=== PATIENT | male | born 1990 | race Caucasian/White ===

== ENCOUNTER 2024-10-14 14:14 | Outpatient (AMB) | payer MEDICAID, SELFPAY ==
[2024-10-14 14:32] VITALS: BP 127/84; PULSE 87; RESP 18; TEMP 36.4; O2SAT 95; BMI 32.0
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
== END 2024-10-14 15:11 | disposition home or self-care (01) ==
LOC: HODAHC 14:14
PROVIDERS: PCP Internal Medicine; Referring Provider Student in an Organized Health Care Education/Training Program; Supervising Provider Internal Medicine; Visit Provider Student in an Organized Health Care Education/Training Program
DX: E11.9 Type 2 diabetes mellitus without complications (principal); E78.1 Pure hyperglyceridemia; E78.5 Hyperlipidemia, unspecified; Z79.84 Long term (current) use of oral hypoglycemic drugs
CPT/HCPCS: 99213; G0463

== ENCOUNTER 2025-01-13 16:42 | Outpatient (AMB) | payer MEDICAID, SELFPAY ==
--- NOTE | 2025-01-13 14:58 | PD.RESCLINIC ---
Allergies/Meds Allergies & Medications Allergies aspirin Allergy (Severe, Verified 01/13/25 15:18) Swelling of Lip/Tongue/Throat Medication Reconciliation blood-glucose meter #1 ea 11/25/23 [Rx Confirmed 06/10/24] blood-glucose sensor (FreeStyle Melodie 3 Sensor device) #2 ea 11/30/23 [Rx Confirmed 06/10/24] blood sugar diagnostic (Blood Glucose Test strips) #50 ea 01/25/24 [Rx Confirmed 06/10/24] lancets 30 gauge #200 ea 01/25/24 [Rx Confirmed 06/10/24] atorvastatin 20 mg tablet 20 mg PO QHS #90 tabs 01/13/25 [Rx Confirmed 01/13/25] fenofibrate nanocrystallized 145 mg tablet 145 mg PO QDAY #90 tabs 01/13/25 [Rx Confirmed 01/13/25] metformin 500 mg tablet 1,000 mg (2 x 500 mg) PO BIDWMEAL #360 tabs 01/13/25 [Rx Confirmed 01/13/25] MA Intake Visit Data Collection New Patient or Established: Established Patient (seen at [facility] within 3 years) Seen by Clinical Staff ONLY (RN/MA): No Pain Present Currently: No Pain scale:: 0 Pain Scale Used: Monae-Zamorano/Numerical Credit Authorizer Required: No PCP or OBGYN visit in last 3 months: Yes Hx Now: No Do You Feel Safe at Home: Yes Authorities Contacted: N/A Smoking Status Smoking Status: Never smoker For Televisit only Telemed Video/Phone Visit: Yes Verbal consent obtained for Telemed visit?: Yes Verbal Consent witness name: lizbet suazo ma Telemed Video/Phone visit w/Clinical Staff: 21-30 min Immunization / Flu Flu Vaccine in the Last 12 Months: Yes Flu Vaccine Exclusion Criteria: No Exclusion Criteria and Already Received Past Medical History Past Medical History NEUROLOGIC: Negative Neurological Disorders CARDIAC: Negative Cardiac Disorders or Congestive Heart Failure RESPIRATORY: Negative Chronic Obstructive Pulmonary Disease (COPD) or Asthma GASTROINTESTINAL: Negative Gastrointestinal Disorders GENITOURINARY: Negative Genitourinary Disorders or Renal Disease ENDOCRINE: Negative Endocrine Disorders, Diabetes Mellitus Type 1 or Diabetes Mellitus Type 2 HEMATOLOGIC: Negative Blood Disorders or Sickle Cell Disease OTHER HISTORY: Negative Autoimmune Disease, Anesthesia Reactions, MRSA, Clostridium Difficile or Cancer Family History FAMILY HISTORY: Negative Family Psychiatric Problems, Family Respiratory Disorders, Family Cardiac Disorders, Family Gastrointestinal Problems, Family Cancer, Family Surgery or Family Anesthesia Reaction Surgical History SURGICAL: Negative Cardiac Surgery, Endocrine Surgery, Ear Surgery, Abdominal Surgery, Nephrectomy, Joint Replacement or Neurologic Surgery Social History SMOKING STATUS: Smoking status: Never smoker ALCOHOL: Alcohol Intake: Never HOUSING: Housing: House LIVES WITH: Lives With: Spouse Patient Ashley Domingoamanda Social History Living Situation History Housing: House Housing Other:: pt lives with Tobacco History Smoking Status: Never smoker Alcohol History Alcohol Intake: Never Domestic Abuse History Do You Feel Safe at Home: Yes Review of Systems Report any current symptoms Only answer those that you have currently: Past Medical History Past Medical History Have you ever been diagnosed with any of the following: Cardiology Problems Congestive Heart Failure: No Respiratory Problems Chronic Obstructive Pulmonary Disease (COPD): No Asthma: No Genital/Urinary Problems Renal Disease: No Endocrine Problems Diabetes Mellitus Type 1: No Diabetes Mellitus Type 2: No Blood Problems Sickle Cell Disease: No Other Problems Autoimmune Disease: No Anesthesia Reactions: No MRSA: No Clostridium Difficile: No Cancer: No History of Present Illness HPI Narrative Mr. Miguel Carvalho is a 33-year-old male with history of new onset diabetes and pancreatitis here for three month follow-up visit to review recent labwork. Patient's TG, Cholesterol, and A1c all have increased in the last three months. Most concerning, is his increased TG from 197 to 500, and A1c from 7.4 to 7.7%. Patient does admit that since he went to [facility] with his family trhee weeks ago, he has not taken his Fenofibrate or Statin or maintain a balanced, healthy diet with less fats and carbs. Patient was encouraged to incorporate daily exercise, start introducing a balanced diet into his daily routine, and take his Fenofibrate and Statin daily. Will also increase patient's Meformin to 1000mg BIDWM. Otherwise, patient denies any n/v, diarrhea, or abdominal pain. Patient was sent refills along with new prescription for Meformin. Patient will f/u in three months for routine bloodwork. Patient will stop by office one week prior for lab slip to be picked up to complete labs at [facility]. Review of Systems Review of Systems Systems Reviewed: All systems reviewed, normal except as documented Objective/Exam Narrative Physical exam: Visit conducted via telephone Assessment & Plan Diagnosis / Problem List (1) Hypertriglyceridemia: Status: Acute Assessment & Plan: Patient hospitalized for acute pancreatitis most likely secondary to hypertriglyceridemia in early 2023. Patient's triglycerides were as high as 800. Last triglycerides increased from 197 to 500, seen on routine bloodwork collected on 01/08/25 Patient did admit to not taking both Atorvastatin and Fenofibrate for three weeks LDL/HDL ratio on labwork from 01/08/25 was 5.04:1, indicating high risk Plan: Encouraged strict compliance with fenofibrate 145 mg daily and Atorvastatin 20mg HS Continue to maintain a low fat and carb diet to avoid recurrent pancreatitis Will have patient repeat bloodwork in three months: Lipid panel and LFTs (2) Diabetes mellitus: Status: Acute Assessment & Plan: Patient's current A1c 7.7% which is higher than three months ago. Plan: Increased patient's Metformin dose from 500 to 1000mg BIDWM Encouraged patient to incorporate healthy, balanced diet and exercise to daily routine Will discuss if patient has had his annual appointments for foot and eye care (3) Hyperlipidemia: Status: Acute Assessment & Plan: Patient's LDL/HDL ratio is elevated on recent labs despite LDL showing a decrease from last labs. HDL also decreased. Plan: Continue to take fenofibrate 145 mg daily and Atorvastatin 20mg HS Continue to maintain a low fat and carb diet to avoid recurrent pancreatitis Next appointment for April for routine labwork and possible adjustment of medications Additional Assessment Patient's care and plan discussed with my attending, Dr. Doss. Radha Rodgers, PGY-2 Internal Medicine Attending Note: Case discussed with and agree with note and management plan of Resident Physician as per Resident's Note above. Issues of concern for present visit are as follows: 3-month follow-up visit. Labs reviewed. Triglycerides have increased to 500. Hemoglobin A1c up from 7.4 to 7.7. Patient has not been watching his diet, and for approximately 3 weeks to 1 month has not taken fenofibrate or statin. Need for medication compliance reinforced. Reviewed diet, exercise, footcare, eye care. Resume statin and fenofibrate. Metformin dose increased. Follow-up in 3 months for repeat of labs. Krishna Doss MD Physician Billing Established Patient Established Patient: E/M Level 3-CPT 82098 Office Procedures [facility] Level of Care Nursing/Assessment Patient Status: Established Patient Nursing Assessment/Reassessment: Medication Reconciliation and Update PMH in EMR Coordination of Care: Complex Care and Chronic Disease 1-5, Consent,records obtained, informed consent, Education Simp Pt/Fam, Lab and Imaging orders, Results/Orders obtained and Staff clarify orders Established Patient Charge Established Patient Point Assignment: 90 Telehealth Telemed Phone/Video with patient at home & Dr,PA,TOP DYEING MACHINE LOADER: Yes
== END 2025-01-13 16:42 | disposition home or self-care (01) ==
LOC: HODAHC 16:42
PROVIDERS: PCP Student in an Organized Health Care Education/Training Program; Referring Provider Student in an Organized Health Care Education/Training Program; Supervising Provider Internal Medicine; Visit Provider Student in an Organized Health Care Education/Training Program
DX: E78.1 Pure hyperglyceridemia (principal); E11.9 Type 2 diabetes mellitus without complications; E78.5 Hyperlipidemia, unspecified; Z79.84 Long term (current) use of oral hypoglycemic drugs
CPT/HCPCS: 99212; G0463

== ENCOUNTER 2025-09-10 13:58 | Emergency (ER) | payer MEDICAID, SELFPAY ==
[2025-09-10 14:55] VITALS: BP 145/93; PULSE 84; RESP 20; TEMP 36.8; O2SAT 96; BMI 32.1
--- NOTE | 2025-09-10 15:53 | XR_ITS ---
Examination: CT abdomen and pelvis without contrast. Coronal 3-D reconstructions. Sagittal 2-D reconstructions. Date and time of exam: September 10, 2025, 1421 hours INDICATIONS: Generalized abdominal pain today, history pancreatitis, comparison verbally 22,024 CTDI: vol (mGy): 10.8 DLP: (mGycm): 725 Technique: Axial images of the abdomen have been obtained, 3 mm slice thickness Intravenous contrast material has not been administered. Low dose protocols were performed. One or more of the following dose reduction techniques were used; automated exposure control, adjustment of the mA and/or KV according to patient size, use of iterative reconstruction technique. Findings: Diffuse fatty infiltration throughout the liver moderate hepatomegaly Gallbladder contracted, gallbladder wall does appear thickened Severe acute pancreatitis, no pseudocyst Spleen not enlarged Moderate renal scar formation Aorta normal size Normal appendix No bowel obstruction or diverticulitis Normal seminal vesicles No prostatomegaly Contracted urinary bladder Adequate bone density IMPRESSION: Severe acute pancreatitis, no pseudocyst Gallbladder wall appears thickened, consider MRCP follow-up
[2025-09-10 16:07] LABS: Lactate (Lactic Acid) 2.6 mMol/L (0.4-2.0)
[2025-09-10 16:08] LABS: Basophils # (Auto) 0.1 Thou/mm3 (0.0-0.2); Basophils % (Auto) 0 % (0-2.5); Eosinophils # (Auto) 0.0 Thou/mm3 (0.0-0.5); Eosinophils % (Auto) 0 % (0-10); Hematocrit 45.4 % (41.0-53.0); Hemoglobin 15.8 g/dL (13.5-16.0); Immature Granulocytes Auto 0.08 Thou/mm3 (0.00-0.00); Lymphocytes # (Auto) 0.9 Thou/mm3 (1.0-4.8); Lymphocytes % (Auto) 6 % (10-50); Mean Corpuscular HGB Conc 34.8 g/dl (31.0-37.0); Mean Corpuscular Hemoglobin 30.8 pg (25.0-35.0); Mean Corpuscular Volume 89 fL (80-100); Monocytes # (Auto) 0.9 Thou/mm3 (0.0-0.8); Monocytes % (Auto) 6 % (0-12); Neutrophils # (Auto) 13.9 Thou/mm3 (1.8-7.7); Neutrophils % (Auto) 88 % (37-80); Nucleated Red Blood Cell # 0.00 Thou/mm3 (0.00-0.00); Nucleated Red Blood Cell % 0 /100 WBC (0); Platelet Count 230 Thou/mm3 (140-440); RDW Standard Deviation 39.8 fL (35.1-43.9); Red Blood Count 5.13 Miln/mm3 (4.50-5.90); White Blood Count 15.9 Thou/mm3 (3.8-10.6)
[2025-09-10 16:22] LABS: Collection Type, Urine Clean Catch; Squamous Epithelial Cell,Urine 0 /hpf (0-5)
[2025-09-10 16:28] LABS: Anion Gap 13 (7-16); BUN/Creatinine Ratio 8 Ratio (12-20); Blood Urea Nitrogen 9 mg/dL (9-23); Calcium 9.8 mg/dL (8.3-10.6); Carbon Dioxide 24.6 mMol/L (20.0-31.0); Chloride 99 mMol/L (98-107); Creatinine (Component) 1.1 mg/dL (0.6-1.3); Estimated Creatinine Clearance 123.1 mL/min (>60); Glucose 277 mg/dL (74-106); Osmolality,Calculated 282 (275-295); Potassium 4.6 mMol/L (3.4-5.1); Sodium 137 mMol/L (136-145); Troponin I < 0.002 ng/mL (0.0-0.045); eGFR > 60 See Note
[2025-09-10 16:35] LABS: Amorphous Crystals,Urine Present (Absent); Bilirubin,Urine Negative (Negative); Blood,Urine Negative (Negative); Color,Urine Yellow (Lt Yel-Yel); Glucose, Urine 4+ (Negative); Hyaline Casts,Urine < 1 /hpf (0-1); Ketones,Urine 2+ (Negative); Leukocyte Esterase,Urine Negative (Negative); Nitrite,Urine Negative (Negative); PH,Urine 5.5 (5.0-7.0); Protein,Urine 1+ (Neg - Trace); RBC,Urine 4 /hpf (0-3); Specific Gravity,Urine 1.032 (1.001-1.035); Urobilinogen,Urine Negative mg/dL (0.0-1.0); WBC,Urine 2 /hpf (0-5)
[2025-09-10 16:37] LABS: Lipase 1035 U/L (12-53)
[2025-09-10 16:48] LABS: Clarity,Urine Cloudy (Clear/Hazy)
--- NOTE | 2025-09-10 17:07 | XR_ITS ---
Examination: Abdomen sonogram, Limited Date and time of exam: September 10, 2025, 1724 hours INDICATIONS: Right upper abdominal pain and tenderness today Technique: Real-time mistry scale transabdominal sonographic images of the upper abdomen obtained. Findings: Normal gallbladder Common bile duct 0.6 cm no definite stones Pancreas obscured by bowel gas Liver 20.9 cm fatty infiltration Normal hepatopetal portal venous flow Patent IVC IMPRESSION: Normal gallbladder Enlarged common bile duct 0.6 cm although no definite stones If biliary colic is a clinical consideration, suggest MRCP follow-up
[2025-09-10 19:05] LABS: Reflex Lactate? Y
--- NOTE | 2025-09-10 19:45 | PD.EDABDPN ---
ED Abdominal Pain RME/HPI General Chief Complaint: Abdominal Pain Stated complaint: Right side abdominal pain since this morning Time seen by provider: 09/10/25 14:46 Arrival date/time: 09/10/25 13:58 Source: patient Mode of arrival: ambulatory Limitations: no limitations RME / HPI RME / HPI narrative: This patient is a pleasant but morbidly obese 35-year-old male who arrives to the ED today for evaluation of abdominal pain rating to his back for the past day. Patient states symptoms began yesterday and have continued. Patient states a history of pancreatitis that has not been evaluated for chronic conditions. Patient denies any fever but states intermittent nausea. Related Data Previous Rx's ?Medication ?Instructions ?Recorded blood-glucose meter #1 ea 11/25/23 blood-glucose sensor (FreeStyle #2 ea 11/30/23 Melodie 3 Sensor device) blood sugar diagnostic (Blood #50 ea 01/25/24 Glucose Test strips) lancets 30 gauge #200 ea 01/25/24 atorvastatin 20 mg tablet 20 mg PO QHS #90 tabs 01/13/25 fenofibrate nanocrystallized 145 145 mg PO QDAY #90 tabs 01/13/25 mg tablet metformin 500 mg tablet 1,000 mg (2 x 500 mg) PO BIDWMEAL 01/13/25 #360 tabs hydrocodone 5 mg-acetaminophen 325 1 tab PO Q8H PRN pain #14 tabs 09/11/25 mg tablet Allergies Allergy/AdvReac Type Severity Reaction Status Date / Time aspirin Allergy Severe Swelling Verified 09/10/25 14:02 of Lip/Tongue/Throat ibuprofen Allergy Verified 09/10/25 14:02 Review of Systems Review of Systems Systems Reviewed: All systems reviewed, normal except as documented Past Medical History Past Medical History NEUROLOGIC: Negative Neurological Disorders CARDIAC: Negative Cardiac Disorders or Congestive Heart Failure RESPIRATORY: Negative Chronic Obstructive Pulmonary Disease (COPD) or Asthma GASTROINTESTINAL: Positive Pancreatitis; Negative Gastrointestinal Disorders GENITOURINARY: Negative Genitourinary Disorders or Renal Disease MUSCULOSKELETAL: Negative Musculoskeletal Disorders ENDOCRINE: Negative Endocrine Disorders, Diabetes Mellitus Type 1 or Diabetes Mellitus Type 2 HEMATOLOGIC: Negative Blood Disorders or Sickle Cell Disease OTHER HISTORY: Negative Autoimmune Disease, Anesthesia Reactions, MRSA, Clostridium Difficile or Cancer Family History FAMILY HISTORY: Negative Family Psychiatric Problems, Family Respiratory Disorders, Family Cardiac Disorders, Family Gastrointestinal Problems, Family Cancer, Family Surgery or Family Anesthesia Reaction Surgical History SURGICAL: Negative Cardiac Surgery, Endocrine Surgery, Ear Surgery, Abdominal Surgery, Nephrectomy, Joint Replacement or Neurologic Surgery Social History SMOKING STATUS: Never smoker ED Exam Narrative Physical exam: Diffuse epigastric tenderness to palpation extending towards the right upper quadrant and into the back per patient. No signs of trauma. No pulsatile masses. General Limitations: Present no limitations General appearance: Present alert and in no apparent distress Head Head exam: Present atraumatic Eye Eye exam: Present normal appearance, PERRL and EOMI ENT ENT exam: Present normal exam, normal oropharynx and mucous membranes moist Neck Neck exam: Present normal inspection, full ROM and trachea midline Chest Chest inspection: Present normal inspection and symmetric chest wall rise Respiratory Respiratory exam: Present normal lung sounds bilaterally Cardiovascular Cardiovascular exam: Present regular rate, normal rhythm and normal heart sounds Abdominal Exam Abdominal exam: Present tenderness and hyperactive bowel sounds Abdominal tenderness: Present RUQ, LUQ, epigastrium and moderate Rectal Exam Rectal exam: Present deferred exam: Present other (Deferred) Extremities Exam Extremities exam: Present normal inspection and full ROM Back Exam Back exam: Present normal inspection and full ROM Neurological Exam Neurological exam: Present alert, oriented X3 and CN II-XII intact Psychiatric Psychiatric exam: Present normal affect and normal mood Skin Skin exam: Present warm, dry, intact and normal color Course Course Course Narrative: All studies performed at ED were evaluated by me personally. Serum laboratories remarkable for a hyperglycemic state with a blood sugar of 277. Additional findings of leukocytosis with a white blood cell count of 15.9 as well as a significantly elevated lipase of 1035 indicative of a acute pancreatitis event. Additional findings of elevated lactic acid were noted. Imaging studies were performed and acute pancreatitis was noted. Additional findings of possible cholecystitis were noted. Patient will remain in ED under observation while waiting on MRCP prior to admission. Quality Measures none Orders Category Date Time Status Aspiration precautions NOW Care 09/10/25 16:59 Completed IV [Insert IV] NOW Care 09/10/25 16:58 Completed MRI Screening NOW Care 09/10/25 17:01 Completed NPO NOW Care 09/10/25 16:59 Completed Diet NPO (NOW) Diet 09/10/25 16:[address] abdomen pelvis wo con Stat Exams 09/10/25 15:53 Completed MR MRCP Stat Exams 09/11/25 Completed US abdomen limited Stat Exams 09/10/25 17:07 Completed BMP [Basic Metabolic Panel] Stat Lab 09/10/25 16:02 Completed CBC Stat Lab 09/10/25 16:02 Completed CBC Stat Lab 09/11/25 10:29 Completed CMP [Comprehensive Metabolic Panel] Stat Lab 09/11/25 10:29 Completed Lactate (Lactic Acid) Stat Lab 09/10/25 16:02 Completed Lactic Acid, 3 HR Stat Lab 09/10/25 20:51 Completed Lipase Stat Lab 09/10/25 16:02 Completed Lipase Stat Lab 09/11/25 10:29 Completed Liver Panel Stat Lab 09/11/25 04:35 Completed Troponin I Stat Lab 09/10/25 16:02 Completed UA [Urinalysis] Stat Lab 09/10/25 16:11 Completed HYDROmorphone INJ [Dilaudid Inj] Med 09/10/25 15:54 Discontinued 0.5 mg IM X1 ONE HYDROmorphone INJ [Dilaudid Inj] Med 09/11/25 00:12 Discontinued 1 mg IVP X1 ONE Insulin Regular Med 09/11/25 01:43 Discontinued 8 unit SC X1 ONE Morphine* Inj Med 09/11/25 13:16 Discontinued 4 mg IVP X1 ONE Ondansetron Inj [Zofran Inj] Med 09/11/25 13:16 Discontinued 4 mg IVP X1 ONE Ondansetron Odt [Zofran Odt] Med 09/10/25 16:09 Discontinued 4 mg PO X1 ONE Sodium Chloride 0.9% 1000 ml [Ns] 1,000 ml Med 09/10/25 16:58 Discontinued IV 150 mls/hr Sodium Chloride 0.9% 1000 ml [Ns] 1,000 ml Med 09/11/25 01:43 Discontinued IV 999 mls/hr Sodium Chloride 0.9% 1000 ml [Ns] 1,000 ml Med 09/11/25 10:24 Discontinued IV 999 mls/hr As above Vital Signs Vital signs: Vital Signs Temperature 98.2 F 09/10/25 14:55 Pulse Rate 84 09/10/25 14:55 Respiratory Rate 20 09/10/25 14:55 Blood Pressure 145/93 H 09/10/25 14:55 Pulse Oximetry (%) 96 09/10/25 14:55 Oxygen Delivery Method Room Air 09/10/25 14:55 Noted above Abdominal Pain MDM MDM Narrative MDM Narrative:: Imaging studies and laboratories confirmed an acute pancreatitis. Possible cholecystitis was noted. Patient will remain in the ED under observation until MRCP study has been performed. Admission will be started at that time. Patient data External records reviewed:: [facility] previous records Clinical information provided by:: patient Social determinants that could affect healthcare access:: none Patient has the following chronic illnesses:: Pancreatitis How is presenting disease/condition affected by chronic disease/condition?: caused by Evaluation data The following diagnostics were reviewed and interpreted by me:: lab results, radiology exam(s) and EKG tracing(s) Lab and/or radiology exams considered but not ordered:: None Interpretation Summary: Serum laboratories revealed a hyperglycemic state with a value of 277. Additional findings of a leukocytosis with a white blood cell count of 15.9 was noted as well as an elevated lipase of 1035. Elevated lactic acid was noted as well. Patient imaging studies confirmed acute pancreatitis with possible cholecystitis. Patient will remain in the ED under observation until MRCP evaluation can occur. Medications / Prescriptions Medications or Prescriptions considered but not ordered:: None Medication administrations:: Medication Administration History Discontinued Medications Hydromorphone HCl (Hydromorphone Inj 2 Mg/Ml Vial) 0.5 mg IM X1 ONE Stop: 09/10/25 15:55 Last Admin: 09/10/25 20:04 Dose: 0.5 mg Documented By: CVL Hydromorphone HCl (Hydromorphone Inj 2 Mg/Ml Vial) 1 mg IVP X1 ONE Stop: 09/11/25 00:13 Last Admin: 09/11/25 02:21 Dose: 1 mg Documented By: EB Sodium Chloride (Ns) 1,000 mls @ 150 mls/hr IV .Q6H40M ONE Stop: 09/10/25 23:37 Last Infusion: 09/11/25 07:05 Dose: Infused Documented By: Admin: 09/10/25 20:00 Dose: 150 mls/hr Documented By: CVL Sodium Chloride (Ns) 1,000 mls @ 999 mls/hr IV .Q1H1M ONE Stop: 09/11/25 02:43 Last Infusion: 09/11/25 03:12 Dose: Infused Documented By: Admin: 09/11/25 03:10 Dose: 999 mls/hr Documented By: EB Sodium Chloride (Ns) 1,000 mls @ 999 mls/hr IV .Q1H1M ONE Stop: 09/11/25 11:24 Last Infusion: 09/11/25 12:03 Dose: Infused Documented By: Admin: 09/11/25 11:02 Dose: 999 mls/hr Documented By: EF Insulin Human Regular (Insulin Hum Regular 1 Unit/0.01 Ml (Per Unit)) 8 unit SC X1 ONE Stop: 09/11/25 01:44 Last Admin: 09/11/25 02:35 Dose: 8 unit Documented By: EB Co-signed By: AC Morphine Sulfate (Morphine Sulf Inj 4 Mg/Ml Vial) 4 mg IVP X1 ONE Stop: 09/11/25 13:17 Last Admin: 09/11/25 13:32 Dose: 4 mg Documented By: EF Ondansetron HCl (Ondansetron Odt 4 Mg Tabrap) 4 mg PO X1 ONE; Protocol Stop: 09/10/25 16:10 Last Admin: 09/10/25 20:00 Dose: 4 mg Documented By: CVL Ondansetron HCl (Ondansetron Inj 2 Mg/Ml Inj 2 Ml) 4 mg IVP X1 ONE; Protocol Stop: 09/11/25 13:17 Last Admin: 09/11/25 13:32 Dose: 4 mg Documented By: EF See above Consultations Consultation(s) initiated? (list below): No Diagnosis Differential diagnosis abdominal pain: abdominal pain, acute appendicitis, gastroenteritis, pancreatitis and small bowel obstruction Most likely diagnosis given after review of the tests above:: Pancreatitis Admission Indicated Admission indicated?: not indicated Explain why admission is indicated or not indicated:: Pending MRCP results Admission Request Was there a request for admission?: No Disposition Plan Disposition Plan: other (specify) (Patient will be transferred of care to Dr. Philip) Discharge Plan Plan Patient Disposition: HOME (Self Care) Patient condition on transfer: Stable Prescriptions/Referrals Prescriptions/Med Rec: New hydrocodone-acetaminophen 5-325 mg tablet 1 tab PO Q8H MDD 3 PRN (Reason: pain) Qty: 14 0RF No Action metformin 500 mg tablet 1,000 mg PO BIDWMEAL Qty: 360 1RF fenofibrate nanocrystallized 145 mg tablet 145 mg PO QDAY Qty: 90 1RF atorvastatin 20 mg tablet 20 mg PO QHS Qty: 90 1RF (DME) FreeStyle Melodie 3 Sensor Device See Rx Instructions .Route Qty: 2 0RF Rx Instructions: As directed (DME) lancets 30 gauge misc See Rx Instructions .Route Qty: 200 2RF Rx Instructions: As directed. Check blood sugar 3x per day including fasting. (DME) Blood Glucose Test Strip See Rx Instructions .Route Qty: 50 2RF Rx Instructions: As directed. Check blood sugar 3x per day including fasting. (DME) blood-glucose meter Kit See Rx Instructions .Route Qty: 1 0RF Rx Instructions: As directed. Check blood sugar 3x per day including fasting. Referrals: Walter Rodgers MD [Primary Care Provider, Neurology] - In 1 week Problem List Clinical Impression: Pancreatitis, Common bile duct dilatation, Abdominal pain Patient/Caregiver Discharge Instructions Discharge Activity: activity as tolerated Diet Instructions: Clear fluids for 2 days Education Materials: Abdominal Pain, Pancreatitis Acute Dc Additional Instructions: Drink clear fluids for the next few days. Take medication as prescribed for pain. Follow-up with your doctor as scheduled. Print Language: Yemeni Stand Alone Forms: Jaki Award Info., Patient Portal Info Letter Attestation Attestation I took over the care from ARTUR Butler at _11PM_ on _09/11/25_. See previous notes for complete H & P and ED course. I reviewed all diagnostic test results. Diagnoses include: Pancreatitis Enlarged common bile duct MRCP pending. At 6 AM on 09/11/2025, the care of the patient was transferred to Dr. Joy. Maykel Philip MD
[2025-09-10 20:00] VITALS: BP 143/86; PULSE 90; RESP 18; TEMP 36.8; O2SAT 96
[2025-09-10] MEDS: SODIUM CHLORIDE 0.9% 1000 ML 1,000 ML 150 ML IV (20:00)
[2025-09-10] MEDS: ONDANSETRON ODT 4 MG TABRAP PO (20:00)
[2025-09-10] MEDS: HYDROmorphone INJ 2 MG/ML VIAL 0.5 MG IM (20:04)
[2025-09-10 20:55] LABS: Lactic Acid, 3 HR 1.7 mMol/L (0.4-2.0)
--- NOTE | 2025-09-11 | XR_ITS ---
MRI abdomen, without contrast. MRCP Date and time of exam: 09/11/2025 at 7:33 a.m. CLINICAL HISTORY: Right upper quadrant pain, and the previous ultrasound head showed an enlarged common bile duct, COMPARISON STUDY: Abdominal CT and 09/10/2025-gallbladder ultrasound on 09/10/2025 Technique: Multiple axial and coronal images of the abdomen have been obtained with the Siemens 1.5T MRI scanner. Images obtained included T1 weighted transverse images, T2-weighted transverse images, T2-weighted transverse images fat-suppressed, T2 weighted haste fat suppressed transverse images, T1 weighted images, in and out of phase images, T2-weighted coronal images, breath hold, T2 weighted haze coronal images as well as T2 weighted coronal thick slab images, MRCP. Findings: The liver is slightly prominent in size, there is severe fatty infiltration noted throughout the liver. The gallbladder is very well seen and appears normal, and the rotational views of the gallbladder likewise are normal. The axial and coronal images show the cystic duct and intrahepatic bile ducts to be perfectly normal in size and appearance, and the rotational views likewise show the biliary duct system to be perfectly normal spleen size is normal. Both kidneys appear normal as does the retroperitoneum and adrenal glands. There is slight diffuse enlargement of the pancreas and there is a abnormal fluid density surrounding the entire ventral and dorsal surface of the pancreas extending into the anterior pararenal fascia on the left. The pancreatic duct is well seen and perfectly normal in size and appearance. IMPRESSION: 1. The gallbladder and the entire biliary tract system is well seen and perfectly normal in size and appearance 2 there is severe diffuse fatty infiltration throughout the liver. 3. There is mild diffuse enlargement of the pancreas, there is significant abnormal fluid surrounding the entire pancreas as outlined above. These findings indicate acute pancreatitis.
[2025-09-11 00:11] VITALS: BP 135/71; PULSE 84; RESP 20; TEMP 36.6; O2SAT 95
[2025-09-11] MEDS: HYDROmorphone INJ 2 MG/ML VIAL 1 MG IVP (02:21)
--- NOTE | 2025-09-11 02:29 | PC.NURSE ---
BSFS [id number]
[2025-09-11] MEDS: INSULIN HUM REGULAR 1 UNIT/0.01 ML (PER UNIT) 8 UNIT SC (02:35)
[2025-09-11] MEDS: SODIUM CHLORIDE 0.9% 1000 ML 1,000 ML 999 ML IV ×2 (03:10→11:02)
[2025-09-11 04:57] VITALS: BP 134/88; PULSE 88; RESP 20; TEMP 36.6; O2SAT 97
[2025-09-11 05:15] LABS: Alanine Aminotransferase 40 U/L (10-49); Albumin, Serum 4.4 gm/dL (3.5-5.0); Alkaline Phosphatase 51 U/L (46-116); Aspartate Amino Transferase 20 U/L (0-34); Bilirubin,Direct 0.3 mg/dL (0.0-0.3); Bilirubin,Total 1.4 mg/dL (0.3-1.2); Total Protein 7.0 gm/dL (5.7-8.2)
[2025-09-11 05:56] VITALS: BP 138/74; PULSE 85; RESP 18; TEMP 37.1; O2SAT 92
[2025-09-11 07:00] VITALS: BP 100/76; PULSE 89; RESP 18; O2SAT 94
--- NOTE | 2025-09-11 07:11 | PC.NURSE ---
RADHAAr to Pb WHALEY
--- NOTE | 2025-09-11 08:39 | EDNOTE_ITS ---
Emergency Room Addendum Addendum Narrative: 0600: Care assumed from Dr. Philip, the previous shift emergency physician. Past medical, surgical, social and family history reviewed. Vitals and home medications reviewed. I will assume the care of the patient at this time, pending MRCP and final disposition. Please refer to the emergency department record for history and examination from initial visit.?The following addendum documentation note is intended to reflect any pending information, findings, or radiology results not included in the patient?s initial chart. 1023a: We reviewed all the results, analysis, and plan to repeat lipase. At this time patient reports feeling improved. Denies any abdominal pain though has some nausea. Will also order additional IV fluids. Repeat lipase has improved from 1,035 to 401. Patient remains vitally stable through my watch. Patient is amenable to discharge. Strict return precautions were outlined. RADIOLOGY Ordering Physician: Maximus Lindsay PA-C Date of Service: 09/11/25 Procedure(s): MR MRCP Accession Number(s): [id number] cc: Maximus Lindsay PA-C; Mario Brown MD; Walter Rodgers MD~ MRI abdomen, without contrast. MRCP Date and time of exam: 09/11/2025 at 7:33 a.m. CLINICAL HISTORY: Right upper quadrant pain, and the previous ultrasound head showed an enlarged common bile duct, COMPARISON STUDY: Abdominal CT and 09/10/2025-gallbladder ultrasound on 09/10/2025 Technique: Multiple axial and coronal images of the abdomen have been obtained with the Siemens 1.5T MRI scanner. Images obtained included T1 weighted transverse images, T2-weighted transverse images, T2-weighted transverse images fat-suppressed, T2 weighted haste fat suppressed transverse images, T1 weighted images, in and out of phase images, T2-weighted coronal images, breath hold, T2 weighted haze coronal images as well as T2 weighted coronal thick slab images, MRCP. Findings: The liver is slightly prominent in size, there is severe fatty infiltration noted throughout the liver. The gallbladder is very well seen and appears normal, and the rotational views of the gallbladder likewise are normal. The axial and coronal images show the cystic duct and intrahepatic bile ducts to be perfectly normal in size and appearance, and the rotational views likewise show the biliary duct system to be perfectly normal spleen size is normal. Both kidneys appear normal as does the retroperitoneum and adrenal glands. There is slight diffuse enlargement of the pancreas and there is a abnormal fluid density surrounding the entire ventral and dorsal surface of the pancreas extending into the anterior pararenal fascia on the left. The pancreatic duct is well seen and perfectly normal in size and appearance. IMPRESSION: 1. The gallbladder and the entire biliary tract system is well seen and perfectly normal in size and appearance 2 there is severe diffuse fatty infiltration throughout the liver. 3. There is mild diffuse enlargement of the pancreas, there is significant abnormal fluid surrounding the entire pancreas as outlined above. These findings indicate acute pancreatitis. Dictated By: Mario Brown MD Signed By: <Electronically signed by Mario Brown MD in [place]> 09/11/25 0929
[2025-09-11 10:03] VITALS: BP 127/67; PULSE 98; RESP 17; TEMP 37; O2SAT 95
[2025-09-11 10:57] LABS: Basophils # (Auto) 0.0 Thou/mm3 (0.0-0.2); Basophils % (Auto) 0 % (0-2.5); Eosinophils # (Auto) 0.1 Thou/mm3 (0.0-0.5); Eosinophils % (Auto) 1 % (0-10); Hematocrit 41.5 % (41.0-53.0); Hemoglobin 14.2 g/dL (13.5-16.0); Immature Granulocytes Auto 0.07 Thou/mm3 (0.00-0.00); Lymphocytes # (Auto) 1.7 Thou/mm3 (1.0-4.8); Lymphocytes % (Auto) 15 % (10-50); Mean Corpuscular HGB Conc 34.2 g/dl (31.0-37.0); Mean Corpuscular Hemoglobin 30.5 pg (25.0-35.0); Mean Corpuscular Volume 89 fL (80-100); Monocytes # (Auto) 1.2 Thou/mm3 (0.0-0.8); Monocytes % (Auto) 10 % (0-12); Neutrophils # (Auto) 8.3 Thou/mm3 (1.8-7.7); Neutrophils % (Auto) 73 % (37-80); Nucleated Red Blood Cell # 0.00 Thou/mm3 (0.00-0.00); Nucleated Red Blood Cell % 0 /100 WBC (0); Platelet Count 205 Thou/mm3 (140-440); RDW Standard Deviation 40.6 fL (35.1-43.9); Red Blood Count 4.66 Miln/mm3 (4.50-5.90); White Blood Count 11.4 Thou/mm3 (3.8-10.6)
[2025-09-11 11:40] LABS: Alanine Aminotransferase 42 U/L (10-49); Albumin, Serum 4.7 gm/dL (3.5-5.0); Albumin/Globulin Ratio 1.8 (1.2-2.2); Alkaline Phosphatase 54 U/L (46-116); Anion Gap 10 (7-16); Aspartate Amino Transferase 19 U/L (0-34); BUN/Creatinine Ratio 9 Ratio (12-20); Bilirubin,Total 1.5 mg/dL (0.3-1.2); Blood Urea Nitrogen 8 mg/dL (9-23); Calcium 9.5 mg/dL (8.3-10.6); Calcium (Corrected) 9.5 mg/dL (8.5-10.1); Carbon Dioxide 28.8 mMol/L (20.0-31.0); Chloride 102 mMol/L (98-107); Creatinine (Component) 0.9 mg/dL (0.6-1.3); Estimated Creatinine Clearance 150.5 mL/min (>60); Globulin 2.6 gm/dL (2.3-3.5); Glucose 196 mg/dL (74-106); Lipase 401 U/L (12-53); Osmolality,Calculated 284 (275-295); Potassium 4.1 mMol/L (3.4-5.1); Sodium 141 mMol/L (136-145); Total Protein 7.3 gm/dL (5.7-8.2); eGFR > 60 See Note
[2025-09-11 13:08] VITALS: BP 118/78; PULSE 80; RESP 18; TEMP 36.8; O2SAT 95
[2025-09-11] MEDS: MORPHINE SULF INJ 4 MG/ML VIAL IVP (13:32)
[2025-09-11] MEDS: ONDANSETRON INJ 2 MG/ML INJ 2 ML 4 MG IVP (13:32)
== END 2025-09-11 13:49 | disposition home or self-care (01) ==
PROVIDERS: Emergency Medicine; Physician Assistant; Emergency Provider Family Medicine; PCP Psychiatry & Neurology Neurology
DX: K83.8 Other specified diseases of biliary tract (principal); K85.90 Acute pancreatitis without necrosis or infection, unspecified; K76.0 Fatty (change of) liver, not elsewhere classified
CPT/HCPCS: 36415; 74176; 74181; 76705; 80048; 80053; 80076; 81001; 83605; 83690; 84484; 85025; 96361; 96372; 96374; 96375; 99284; J1171; J1815; J2270; J2405; J7030; Q0162

== ENCOUNTER 2025-09-19 13:10 | Outpatient (AMB) | payer MEDICAID, SELFPAY ==
[2025-09-19 13:28] VITALS: BP 136/82; PULSE 88; RESP 16; TEMP 36.6; O2SAT 95; BMI 32.5
--- NOTE | 2025-09-19 13:28 | ACNOTE_ITS ---
Vital Signs 09/19/25 13:28 Height 1.88 m Height Method Stated Weight 114.872 kg Weight Measurement Method Standing Scale BMI 32.5 BP 136/82 H Blood Pressure Source Automatic Cuff Blood Pressure Location Right Upper Arm Position Sitting Respiration 16 Pulse 88 Pulse Source Monitor Temp 97.9 F Temp Source Temporal Artery Scan Pulse Oximetry (%) 95 Oxygen Delivery Method Room Air Allergies/Meds Allergies & Medications Allergies aspirin Allergy (Severe, Verified 09/10/25 14:02) Swelling of Lip/Tongue/Throat ibuprofen Allergy (Verified 09/10/25 14:02) Medication Reconciliation blood-glucose meter #1 ea 11/25/23 [Rx Confirmed 09/19/25] blood-glucose sensor (Thinker ThingStyle Melodie 3 Sensor device) #2 ea 11/30/23 [Rx Confirmed 09/19/25] blood sugar diagnostic (Blood Glucose Test strips) #50 ea 01/25/24 [Rx Confirmed 09/19/25] lancets 30 gauge #200 ea 01/25/24 [Rx Confirmed 09/19/25] atorvastatin 20 mg tablet 20 mg PO QHS #90 tabs 01/13/25 [Rx Confirmed 09/19/25] fenofibrate nanocrystallized 145 mg tablet 145 mg PO QDAY #90 tabs 01/13/25 [Rx Confirmed 09/19/25] hydrocodone 5 mg-acetaminophen 325 mg tablet 1 tab PO Q8H PRN pain #14 tabs 09/11/25 [Rx Confirmed 09/19/25] metformin 1,000 mg tablet 1,000 mg PO BID DIABETES #60 tabs 09/19/25 [Rx] MA Intake Visit Data Collection New Patient or Established: Established Patient (seen at [facility] within 3 years) Seen by Clinical Staff ONLY (RN/MA): No Pain Present Currently: No Pain scale:: 0 Pain Scale Used: Monae-Zamorano/Numerical Tong[employer] Machine Feeder Required: No PCP or OBGYN visit in last 3 months: Yes Do You Feel Safe at Home: Yes Authorities Contacted: N/A Smoking Status Smoking Status: Never smoker Immunization / Flu Flu Vaccine in the Last 12 Months: No Flu Vaccine Exclusion Criteria: Already Received Past Medical History Past Medical History NEUROLOGIC: Negative Neurological Disorders CARDIAC: Negative Cardiac Disorders or Congestive Heart Failure RESPIRATORY: Negative Chronic Obstructive Pulmonary Disease (COPD) or Asthma GASTROINTESTINAL: Positive Pancreatitis; Negative Gastrointestinal Disorders GENITOURINARY: Negative Genitourinary Disorders or Renal Disease ENDOCRINE: Negative Endocrine Disorders, Diabetes Mellitus Type 1 or Diabetes Mellitus Type 2 HEMATOLOGIC: Negative Blood Disorders or Sickle Cell Disease OTHER HISTORY: Negative Autoimmune Disease, Anesthesia Reactions, MRSA, Clostridium Difficile or Cancer Family History FAMILY HISTORY: Negative Family Psychiatric Problems, Family Respiratory Disorders, Family Cardiac Disorders, Family Gastrointestinal Problems, Family Cancer, Family Surgery or Family Anesthesia Reaction Surgical History SURGICAL: Negative Cardiac Surgery, Endocrine Surgery, Ear Surgery, Abdominal Surgery, Nephrectomy, Joint Replacement or Neurologic Surgery Social History SMOKING STATUS: Smoking status: Never smoker ALCOHOL: Alcohol Intake: Never HOUSING: Housing: House LIVES WITH: Lives With: Spouse Patient Ashley Bradleyrachel Social History Living Situation History Housing: House Housing Other:: pt lives with Tobacco History Smoking Status: Never smoker Alcohol History Alcohol Intake: Never Domestic Abuse History Do You Feel Safe at Home: Yes Review of Systems Report any current symptoms Only answer those that you have currently: Past Medical History Past Medical History Have you ever been diagnosed with any of the following: Cardiology Problems Congestive Heart Failure: No Respiratory Problems Chronic Obstructive Pulmonary Disease (COPD): No Asthma: No Stomache/Intestinal Problems Pancreatitis: Yes Genital/Urinary Problems Renal Disease: No Endocrine Problems Diabetes Mellitus Type 1: No Diabetes Mellitus Type 2: No Blood Problems Sickle Cell Disease: No Other Problems Autoimmune Disease: No Anesthesia Reactions: No MRSA: No Clostridium Difficile: No Cancer: No History of Present Illness HPI Narrative Mr. Miguel Carvalho is a 33-year-old male with history of new onset diabetes and pancreatitis here for three month follow-up visit to review recent labwork. Patient's TG, Cholesterol, and A1c all have increased in the last three months. Most concerning, is his increased TG from 197 to 500, and A1c from 7.4 to 7.7%. Patient does admit that since he went to [facility] with his family trhee weeks ago, he has not taken his Fenofibrate or Statin or maintain a balanced, healthy diet with less fats and carbs. Patient was encouraged to incorporate daily exercise, start introducing a balanced diet into his daily routine, and take his Fenofibrate and Statin daily. Will also increase patient's Meformin to 1000mg BIDWM. Otherwise, patient denies any n/v, diarrhea, or abdominal pain. Patient was sent refills along with new prescription for Meformin. Patient will f/u in three months for routine bloodwork. Patient will stop by office one week prior for lab slip to be picked up to complete labs at [facility]. 09/19/2025 Follow-up visit. Currently doing well, denies new or worsening symptoms. Denies fever, chills, headaches, chest pain, sob, cough, GI or urinary symptoms. He was seen in the ED few weeks ago for acute pancreatitis which resolved after fluids and did not require hospital admission. Currently back to baseline without abdominal symptoms. TBili was 1.[address] did abdominal CT + US + MRCP + liver US with findings of pancreatitis and severe fatty liver disease; without evidence of cholecystitis or biliary pathology. He has no abdominal tenderness or jaundice on exam. Lipase was 401. He has hx of hyper-TG despite STATIN and FINOFIBRONATE and he denies alcohol use. Likely acute pancreatitis 2/2 hyper-TG. I think controlling his diabetes will help improve his TG level. Will increase METFORMIN to 1000 mg BID and repeat labs (last A1C 7.7 from 11/2023). Provided CGM sample and recommended tracking BG and lifestyle modifcations. Recommended weight loss and he is motivated to start exercising. We consider adding another glycemic control on next visit. Meds: Continue [place] regim[place] [address] BID. Orders: CBC, CMP, TSH, LIPID PANEL, A1C Referrals: NONE Follow-up: 1 month to check labs Review of Systems Review of Systems Systems Reviewed: All systems reviewed, normal except as documented Narrative Review of Systems: Denies fever, chills, headaches, chest pain, sob, cough, GI or urinary symptoms. Objective/Exam Narrative Physical exam: GENERAL * Normal appearing male, NAD, slightly obese. HEENT * NCAT.?DARYN. Oral mucosa is moist. Patent Nares NECK * Supple, nontender, no JVD. CHEST * RRR, no m/g/r * CTAB, no w/r/r, symmetrical expansion. ABDOMEN * Soft, flat, nontender. No guarding/rebound tenderness/masses. * Bowel sounds presents EXTREMITIES * No edema/cyanosis.? SKIN * Warm and dry, no jaundice/rashes. NEUROMUSCULAR * No lumbar or midline, no CVA, no paraspinal muscle spasm or tenderness. * Moves all 4 extremities well, with full ROM and good CSM. * MENDEZ x4, CN II-XII grossly intact. * No focal neurologic deficits. PSYCHIATRY * Normal mood and affect, cooperative, no SI or HI or hallucinations. Assessment & Plan Diagnosis / Problem List (1) Diabetes mellitus: Status: Acute (2) Hypertriglyceridemia: Status: Acute (3) Hyperlipidemia: Status: Acute Plan Follow-up visit. Currently doing well, denies new or worsening symptoms. Denies fever, chills, headaches, chest pain, sob, cough, GI or urinary symptoms. He was seen in the ED few weeks ago for acute pancreatitis which resolved after fluids and did not require hospital admission. Currently back to baseline without abdominal symptoms. TBili was 1.[address] abdominal [address] + US + MRCP + liver US with findings of pancreatitis and severe fatty liver disease; without evidence of cholecystitis or biliary pathology. He has no abdominal tenderness or jaundice on exam. Lipase was 401. He has hx of hyper-TG despite STATIN and FINOFIBRONATE and he denies alcohol use. Likely acute pancreatitis 2/2 hyper-TG. I think controlling his diabetes will help improve his TG level. Will increase METFORMIN to 1000 mg BID and repeat labs (last A1C 7.7 from 11/2023). Provided CGM sample and recommended tracking BG and lifestyle modifcations. Recommended weight loss and he is motivated to start exercising. We consider adding another glycemic control on next visit. Meds: Continue [place] regimn[place] [address] BID. Orders: CBC, CMP, TSH, LIPID PANEL, A1C Referrals: NONE Follow-up: 1 month to check labs Orders: Orders Thyroid Stimulating Hormone Today E11.9 - Type 2 diabetes mellitus without comp lications, E78.1 - Pure hyperglyceridemia, E78.5 - Hyperlipidemia, unspecified Ambulatory Hemoglobin A1C Today E11.9 - Type 2 diabetes mellitus without complications, E78.1 - Pure hyperglyceridemia, E78.5 - Hyperlipidemia, unspecified Lipid Panel Today E11.9 - Type 2 diabetes mellitus without complications, E78.1 - Pure hyperglyceridemia, E78.5 - Hyperlipidemia, unspecified Office Procedures [facility] Level of Care Nursing/Assessment Patient Status: Established Patient Nursing Assessment/Reassessment: Medication Reconciliation, Update PMH in EMR and Vital Signs Coordination of Care: Complex Care and Chronic Disease 1-5, Education Complex Pt/Fam, Consent,records obtained, informed consent, Lab and Imaging orders, Results/Orders obtained and Staff clarify orders Established Patient Charge Established Patient Point Assignment: 110 Established Patient Point Charge: EP Level 3 (80-115)
== END 2025-09-19 13:50 | disposition home or self-care (01) ==
LOC: HODAHC 13:10
PROVIDERS: PCP Student in an Organized Health Care Education/Training Program; Referring Provider Student in an Organized Health Care Education/Training Program; Supervising Provider Internal Medicine
DX: E78.5 Hyperlipidemia, unspecified (principal); E11.9 Type 2 diabetes mellitus without complications; E78.1 Pure hyperglyceridemia; Z79.84 Long term (current) use of oral hypoglycemic drugs
CPT/HCPCS: 99213; G0463